=== PATIENT | female | born 1975 | race African-American/Black ===

== ENCOUNTER 2017-09-24 21:25 | Emergency (ER) | payer MEDICAID ==
[~2017-09-24] VITALS: Ht 157.5 cm; Wt 63.0 kg
[2017-09-24] MEDS ORDERED: MORPHINE SULFATE 4 MG/ML CPJ (NOT FOR IM USE) IV STA (22:23)
[2017-09-24] MEDS ORDERED: ONDANSETRON HCL 4MG/2ML VIAL IV STA (22:23)
[2017-09-24] MEDS ORDERED: SODIUM CHLORIDE 0.9% 1,000 ML IV ONE (22:23)
[2017-09-24] MEDS ORDERED: MORPHINE SULFATE 10 MG/ML CPJ IV NR (22:45)
[2017-09-24 22:59] LABS: CHLORIDE 106 mEq/L (98-107)
[2017-09-24 23:01] LABS: HEMATOCRIT. 38.1 % (36.0-48.0); HEMOGLOBIN. 12.8 g/dL (12.0-16.0); MEAN CORPUSCULAR HEMOGLOBIN 31.6 pg (28.0-32.0); MEAN CORPUSCULAR VOLUME 94.1 fL (81.0-99.0); PLATELET 361 x1000/uL (130-400); RED BLOOD CELL COUNT 4.04 mill/uL (4.2-5.4); RED CELL DISTRIBUTION WIDTH 13.2 % (11.6-14.6)
[2017-09-24 23:08] LABS: CARBON DIOXIDE 20 mEq/L (21-32)
[2017-09-24 23:20] LABS: PLATELET ESTIMATE NORMAL
[2017-09-25] LABS: CLARITY URINE CLOUDY (CLEAR); COLOR URINE YELLOW (YELLOW); KETONES URINE 4+ (NEGATIVE); LEUKOCYTE ESTERASE URINE 1+ (NEGATIVE); NITRITE URINE NEGATIVE (NEGATIVE); OCCULT BLOOD URINE 3+ (NEGATIVE); PH URINE 5.5 (4.5-8.0); PROTEIN URINE 1+ (NEGATIVE); SPECIFIC GRAVITY URINE 1.028 (1.005-1.030)
[2017-09-25 00:25] LABS: *AMPHETAMINES SCREEN URINE NEGATIVE (NEGATIVE); *BARBITURATES SCREEN URINE NEGATIVE (NEGATIVE); *BENZODIAZEPINES SCREEN URINE NEGATIVE (NEGATIVE); *COCAINE SCREEN URINE NEGATIVE (NEGATIVE); METHADONE URINE SCREEN NEGATIVE (NEGATIVE); OPIATES URINE SCREEN NEGATIVE (NEGATIVE); PHENCYCLIDINE URINE SCREEN NEGATIVE (NEGATIVE)
[2017-09-25 00:26] LABS: CANNABINOID URINE SCREEN PRESUMTIVE POSITIVE (NEGATIVE)
[2017-09-25] MEDS ORDERED: ACETAMINOPHEN 325MG TABLET PO ONE (03:15)
[2017-09-25 03:22] VITALS: BP 118/64
== END 2017-09-25 03:23 | disposition home or self-care (01) ==
LOC: ER 21:36
DX: O03.9 Complete or unspecified spontaneous abortion without complication (principal); O23.41 Unspecified infection of urinary tract in pregnancy, first trimester; O99.321 Drug use complicating pregnancy, first trimester; Z98.890 Other specified postprocedural states; Z3A.01 Less than 8 weeks gestation of pregnancy
CPT/HCPCS: 36415; 76856; 80053; 80305; 81001; 81025; 83690; 84702; 85025; 86850; 86900; 86901; 96361; 96374; 96375; 99285; J2270; J2405; J7030; Z7610; 81003

== ENCOUNTER 2018-06-30 06:25 | Emergency (ER) | payer MEDICAID ==
[~2018-06-30] VITALS: Ht 157.5 cm; Wt 59.0 kg
[2018-06-30 07:59] LABS: BASOPHILS % 0.3 % (0.0-2.0); EOSINOPHILS % 0.6 % (0.0-5.0); HEMATOCRIT. 37.9 % (36.0-48.0); HEMOGLOBIN. 12.8 g/dL (12.0-16.0); LYMPHOCYTES % 33.6 % (20.0-50.0); MEAN CORPUSCULAR HEMOGLOBIN 31.4 pg (28.0-32.0); MEAN CORPUSCULAR VOLUME 92.9 fL (81.0-99.0); MEAN PLATELET VOLUME 6.5 fl (7.4-10.4); MONOCYTES % 7.2 % (2.0-8.0); NEUTROPHILS % 58.3 % (40.0-76.0); PLATELET 370 x1000/uL (130-400); RED BLOOD CELL COUNT 4.08 mill/uL (4.2-5.4); RED CELL DISTRIBUTION WIDTH 13.8 % (11.6-14.6)
[2018-06-30 08:00] LABS: CHLORIDE 107 mEq/L (98-107)
[2018-06-30] MEDS ORDERED: ACETAMINOPHEN 325MG TABLET PO PRN (08:00)
[2018-06-30 08:23] LABS: B-HCG QUANTITATIVE 6108 mIU/mL (<3)
[2018-06-30 09:42] LABS: CLARITY URINE TURBID (CLEAR); COLOR URINE RED (YELLOW); KETONES URINE NEGATIVE (NEGATIVE); LEUKOCYTE ESTERASE URINE 2+ (NEGATIVE); NITRITE URINE NEGATIVE (NEGATIVE); OCCULT BLOOD URINE 3+ (NEGATIVE); PROTEIN URINE 2+ (NEGATIVE); SPECIFIC GRAVITY URINE 1.023 (1.005-1.030)
[2018-06-30 12:25] VITALS: BP 112/76
== END 2018-06-30 12:26 | disposition home or self-care (01) ==
LOC: ER 06:25
DX: O20.0 Threatened abortion (principal); O26.899 Other specified pregnancy related conditions, unspecified trimester; N93.9 Abnormal uterine and vaginal bleeding, unspecified; O23.40 Unspecified infection of urinary tract in pregnancy, unspecified trimester; Z3A.00 Weeks of gestation of pregnancy not specified
CPT/HCPCS: 36415; 76830; 76856; 80053; 81003; 84702; 85025; 86850; 86900; 87086; 99285